=== PATIENT | female | born 1965 | race Caucasian/White ===

== ENCOUNTER 2017-07-09 07:15 | Day surgery (SDC) | payer OTHER, MEDICAID ==
[~2017-07-09 07:15] MED LIST: CEFAZOLIN 1 GM INJ; LACTATED RINGER'S 1,000 ML IV*; LIDOCAINE 2% (SDV) 5 ML INJ; PROPOFOL 200 MG INJ
[2017-07-09] MEDS ORDERED: hydrALAzine 20 MG INJ IV (09:00)
[2017-07-09] MEDS ORDERED: MIDAZOLAM 1 MG/ML 2 ML INJ IV (09:00)
[2017-07-09] MEDS ORDERED: OXYCODONE/ACETAMINOPHEN (5/325) TAB PO ×2 (09:00)
[2017-07-09] MEDS ORDERED: ALBUTEROL 0.083% (NEB) 2.5 MG/3 ML AMP HHN (09:00)
[2017-07-09] MEDS ORDERED: MIDAZOLAM 1 MG/ML 2 ML INJ (09:00)
[2017-07-09] MEDS ORDERED: DIPHENHYDRAMINE 50 MG INJ IV (09:00)
[2017-07-09] MEDS ORDERED: FENTAnyl 50 MCG/ML VIAL IV ×3 (09:00)
[2017-07-09] MEDS ORDERED: LABETALOL HCL 20MG INJ IV (09:00)
[2017-07-09] MEDS ORDERED: EPHEDrine SULFATE 50 MG/5 ML SYG IV (09:00)
[2017-07-09] MEDS ORDERED: HYDROmorphONE (0.2 MG/ML) 10ML SYG IV ×3 (09:00)
[2017-07-09] MEDS ORDERED: FENTAnyl 50 MCG/ML VIAL (09:04)
[2017-07-09] MEDS ORDERED: DEXAMETHASONE 4 MG/ML 1 ML INJ (09:54)
[2017-07-09] MEDS ORDERED: ONDANSETRON 4 MG INJ (09:55)
[2017-07-09] MEDS ORDERED: CEFAZOLIN 1 GM INJ (09:55)
[2017-07-09] MEDS ORDERED: KETOROLAC 30 MG INJ IM (10:24)
[2017-07-09] MEDS: ONDANSETRON 4 MG INJ IV (10:42)
[2017-07-09] MEDS: MEPERIDINE 25 MG INJ IV (10:42)
== END 2017-07-09 12:53 | disposition home or self-care (01) ==
LOC: SDS 07:15
DX: N85.00 Endometrial hyperplasia, unspecified (principal); N95.0 Postmenopausal bleeding; N81.10 Cystocele, unspecified; N85.2 Hypertrophy of uterus; N39.3 Stress incontinence (female) (male)
CPT/HCPCS: 58558; 88305

== ENCOUNTER 2018-01-12 06:10 | Inpatient (IN) | payer OTHER ==
[2018-01-12] MEDS: CEFAZOLIN 2 GM/50 ML (PMX) 50 ML IVPB (06:00)
[2018-01-12] MEDS ORDERED: LACTATED RINGER'S 1,000 ML IV (07:00)
[2018-01-12] MEDS ORDERED: BUPIVACAINE 0.75%/DEXT (SPINAL) 2 ML INJ (07:00)
[2018-01-12] MEDS ORDERED: LIDOCAINE 2% (SDV) 5 ML INJ (07:00)
[2018-01-12] MEDS ORDERED: MIDAZOLAM 1 MG/ML 2 ML INJ (07:37)
[2018-01-12] MEDS ORDERED: EPINEPHrine 1 MG INJ (07:41)
[2018-01-12] MEDS ORDERED: morphine SULFATE/PF (10 MG/10 ML) INJ (07:41)
[2018-01-12] MEDS: POLYMYXIN/BACITRACIN 1L IRRIG (08:24)
[2018-01-12] MEDS: LIDOCAINE 1%/EPI 30 ML INJ (08:24)
[2018-01-12] MEDS ORDERED: CEFAZOLIN 1 GM INJ (09:48)
[2018-01-12] MEDS ORDERED: DEXAMETHASONE 4 MG/ML 1 ML INJ (09:48)
[2018-01-12] MEDS ORDERED: ROCURONIUM 50 MG INJ (09:48)
[2018-01-12] MEDS ORDERED: ONDANSETRON 4 MG INJ ×2 (09:48→11:58)
[2018-01-12] MEDS ORDERED: PROPOFOL 100 ML (10:25)
[2018-01-12] MEDS ORDERED: GLYCOPYRROLATE 0.4 MG INJ (11:26)
[2018-01-12] MEDS ORDERED: NEOSTIGMINE 3 MG/3 ML SYRINGE (11:26)
[2018-01-12] MEDS ORDERED: NALOXONE (0.4 MG/ML) INJ IV (12:00)
[2018-01-12] MEDS ORDERED: EPHEDrine SULFATE 50 MG/5 ML SYG IV (12:00)
[2018-01-12] MEDS ORDERED: ONDANSETRON INJ 6 MG in DEXTROSE 5% 50 ML IVPB (12:00)
[2018-01-12] MEDS ORDERED: MEPERIDINE 25 MG INJ IV (12:00)
[2018-01-12] MEDS ORDERED: METOCLOPRAMIDE 10 MG INJ IV (12:00)
[2018-01-12] MEDS ORDERED: hydrALAzine 20 MG INJ IV (12:00)
[2018-01-12] MEDS ORDERED: ALBUTEROL 0.083% (NEB) 2.5 MG/3 ML AMP HHN (12:00)
[2018-01-12] MEDS ORDERED: OXYCODONE/ACETAMINOPHEN (5/325) TAB PO ×2 (12:00)
[2018-01-12] MEDS ORDERED: DIPHENHYDRAMINE 50 MG INJ IV (12:00)
[2018-01-12] MEDS ORDERED: HYDROmorphONE 0.5 MG/0.5 ML SYG IV ×2 (12:00)
[2018-01-12] MEDS ORDERED: ZOLPIDEM 5 MG TAB PO (12:00)
[2018-01-12] MEDS ORDERED: HYDROmorphONE 1 MG/5 ML IV SYRINGE IV ×2 (12:00)
[2018-01-12] MEDS ORDERED: LABETALOL HCL 20MG INJ IV (12:00)
[2018-01-12] MEDS ORDERED: KETOROLAC 30 MG INJ IV (12:00)
[2018-01-12] MEDS: ONDANSETRON 4 MG INJ IV (12:04)
[2018-01-12] MEDS: HYDROmorphONE 1 MG/5 ML IV SYRINGE IV (12:27)
[2018-01-12] MEDS: METOCLOPRAMIDE 10 MG INJ IV ×3 (13:28→23:35)
[2018-01-12] MEDS: PIPER-TAZO 3.375 GM IV (PMX) 100 ML IVPB ×3 (13:33→23:35)
[2018-01-12] MEDS: metroNIDAZOLE 500 MG/NS (PMX) 100 ML IVPB ×3 (14:46→23:35)
[2018-01-12] MEDS: LACTATED RINGER'S 1,000 ML IV ×2 (14:48→19:41)
[2018-01-12] MEDS: DIPHENHYDRAMINE 50 MG INJ IV (16:40)
[2018-01-12] MEDS: HYDROmorphONE 1 MG/ML SYG IV (20:55)
[2018-01-12] MEDS: KETOROLAC 30 MG INJ IV (23:36)
[2018-01-13] MEDS: HYDROmorphONE 1 MG/ML SYG IV (01:30)
[2018-01-13] MEDS: LACTATED RINGER'S 1,000 ML IV ×5 (03:41→21:56)
[2018-01-13] MEDS: KETOROLAC 30 MG INJ IV ×4 (05:43→20:00)
[2018-01-13] MEDS: PIPER-TAZO 3.375 GM IV (PMX) 100 ML IVPB ×4 (05:43→23:27)
[2018-01-13] MEDS: METOCLOPRAMIDE 10 MG INJ IV (05:43)
[2018-01-13] MEDS: metroNIDAZOLE 500 MG/NS (PMX) 100 ML IVPB ×4 (05:43→23:27)
[2018-01-13] MEDS: ONDANSETRON 4 MG INJ IV ×2 (07:02→13:53)
[2018-01-13] MEDS: DIPHENHYDRAMINE 50 MG INJ IV (07:02)
[2018-01-13 08:50] LABS: ADD MAN DIFF? NO
[2018-01-13 08:58] LABS: WHITE BLOOD COUNT 11.5 10^3/ul (4.8-10.8)
[2018-01-13 08:58] LABS: BASOPHILS % 0.2 % (0.0-2.0); HEMATOCRIT 33.8 % (37.0-47.0); HEMOGLOBIN 11.3 g/dl (12.0-16.0); LYMPHOCYTES % 17.5 % (15.0-51.0); MEAN CORPUSCULAR HEMOGLOBIN 29.9 pg (29.0-33.0); MEAN CORPUSCULAR HGB CONC 33.4 g/dl (32.0-37.0); MEAN CORPUSCULAR VOLUME 89.4 fl (82.0-101.0); MEAN PLATELET VOLUME 9.9 fl (7.4-10.4); MONOCYTE # 0.8 10^3/ul (0.3-0.9); MONOCYTES % 7.2 % (0.0-11.0); NEUTROPHIL # 8.6 10^3/ul (1.6-7.5); NEUTROPHILS % 74.7 % (39.0-77.0); PLATELET COUNT 256 10^3/UL (140-415); RED BLOOD COUNT 3.78 10^6/ul (4.20-5.40); RED CELL DISTRIBUTION WIDTH 12.3 % (11.5-14.5)
[2018-01-13 09:27] LABS: ANION GAP 10 (8-16); BLOOD UREA NITROGEN 10 mg/dl (7-20); CALCIUM 8.8 mg/dl (8.4-10.2); CARBON DIOXIDE 28 mmol/L (21-31); CHLORIDE 106 mmol/L (97-110); CREATININE 0.59 mg/dl (0.44-1.00); GLUCOSE 94 mg/dl (70-220); POTASSIUM 3.2 mmol/L (3.5-5.1); SODIUM 141 mmol/L (135-144)
[2018-01-13] MEDS ORDERED: ALPRAZOLAM 0.25 MG TAB PO (11:30)
[2018-01-13] MEDS: HYDROmorphONE 0.5 MG/0.5 ML SYG IV (13:54)
[2018-01-13] MEDS: POTASSIUM CHLORIDE (SR) 20 MEQ TAB PO ×2 (13:54→20:36)
[2018-01-13] MEDS ORDERED: ESTRADIOL VALERATE 20 MG/0.5 ML INJ IM (14:00)
[2018-01-13] MEDS: ALPRAZOLAM 0.25 MG TAB PO ×2 (16:22→20:36)
[2018-01-13] MEDS: ESTRADIOL VALERATE 20 MG/0.5 ML INJ IM (16:27)
[2018-01-13] MEDS: POTASSIUM CHLORIDE 20 MEQ POWDER FOR ORAL SOLN PO (21:18)
[2018-01-14] MEDS: KETOROLAC 30 MG INJ IV ×6 (02:00→20:00)
[2018-01-14] MEDS: LACTATED RINGER'S 1,000 ML IV ×3 (03:41→18:39)
[2018-01-14] MEDS: ONDANSETRON 4 MG INJ IV ×2 (05:27→18:40)
[2018-01-14] MEDS: metroNIDAZOLE 500 MG/NS (PMX) 100 ML IVPB ×3 (05:27→18:38)
[2018-01-14] MEDS: PIPER-TAZO 3.375 GM IV (PMX) 100 ML IVPB ×3 (05:27→18:39)
[2018-01-14 06:02] LABS: ADD MAN DIFF? NO
[2018-01-14 06:07] LABS: BASOPHILS % 0.4 % (0.0-2.0); EOSINOPHILS # 0.2 10^3/ul (0.0-0.5); EOSINOPHILS % 1.8 % (0.0-7.0); HEMATOCRIT 32.9 % (37.0-47.0); HEMOGLOBIN 10.7 g/dl (12.0-16.0); LYMPHOCYTES # 2.9 10^3/ul (0.8-2.9); LYMPHOCYTES % 32.1 % (15.0-51.0); MEAN CORPUSCULAR HEMOGLOBIN 29.8 pg (29.0-33.0); MEAN CORPUSCULAR HGB CONC 32.5 g/dl (32.0-37.0); MEAN CORPUSCULAR VOLUME 91.6 fl (82.0-101.0); MEAN PLATELET VOLUME 9.5 fl (7.4-10.4); MONOCYTE # 0.6 10^3/ul (0.3-0.9); NEUTROPHIL # 5.3 10^3/ul (1.6-7.5); NEUTROPHILS % 58.4 % (39.0-77.0); PLATELET COUNT 236 10^3/UL (140-415); RED BLOOD COUNT 3.59 10^6/ul (4.20-5.40); RED CELL DISTRIBUTION WIDTH 12.5 % (11.5-14.5)
[2018-01-14 06:29] LABS: ANION GAP 11 (8-16); CARBON DIOXIDE 26 mmol/L (21-31); CHLORIDE 107 mmol/L (97-110); POTASSIUM 3.7 mmol/L (3.5-5.1); SODIUM 140 mmol/L (135-144)
[2018-01-14] MEDS: POTASSIUM CHLORIDE 20 MEQ POWDER FOR ORAL SOLN PO (10:16)
[2018-01-14] MEDS: ALPRAZOLAM 0.25 MG TAB PO ×2 (12:40→21:00)
[2018-01-14] MEDS: PANTOPRAZOLE 40 MG INJ IV (12:43)
[2018-01-15] MEDS: PIPER-TAZO 3.375 GM IV (PMX) 100 ML IVPB ×4 (00:14→18:30)
[2018-01-15] MEDS: metroNIDAZOLE 500 MG/NS (PMX) 100 ML IVPB ×5 (00:14→23:23)
[2018-01-15] MEDS: KETOROLAC 30 MG INJ IV (01:16)
[2018-01-15] MEDS: LACTATED RINGER'S 1,000 ML IV (03:41)
[2018-01-15] MEDS: PANTOPRAZOLE 40 MG INJ IV (05:45)
[2018-01-15 06:04] LABS: ADD MAN DIFF? NO
[2018-01-15 06:11] LABS: WHITE BLOOD COUNT 7.5 10^3/ul (4.8-10.8)
[2018-01-15 06:11] LABS: BASOPHILS % 0.5 % (0.0-2.0); EOSINOPHILS # 0.3 10^3/ul (0.0-0.5); EOSINOPHILS % 3.7 % (0.0-7.0); HEMATOCRIT 30.9 % (37.0-47.0); HEMOGLOBIN 10.1 g/dl (12.0-16.0); LYMPHOCYTES # 1.8 10^3/ul (0.8-2.9); LYMPHOCYTES % 23.8 % (15.0-51.0); MEAN CORPUSCULAR HEMOGLOBIN 29.3 pg (29.0-33.0); MEAN CORPUSCULAR HGB CONC 32.7 g/dl (32.0-37.0); MEAN CORPUSCULAR VOLUME 89.6 fl (82.0-101.0); MEAN PLATELET VOLUME 9.5 fl (7.4-10.4); MONOCYTE # 0.6 10^3/ul (0.3-0.9); MONOCYTES % 7.9 % (0.0-11.0); NEUTROPHIL # 4.8 10^3/ul (1.6-7.5); NEUTROPHILS % 63.8 % (39.0-77.0); PLATELET COUNT 219 10^3/UL (140-415); RED BLOOD COUNT 3.45 10^6/ul (4.20-5.40); RED CELL DISTRIBUTION WIDTH 12.1 % (11.5-14.5)
[2018-01-15 06:31] LABS: ANION GAP 9 (8-16); BLOOD UREA NITROGEN 8 mg/dl (7-20); CALCIUM 8.4 mg/dl (8.4-10.2); CARBON DIOXIDE 29 mmol/L (21-31); CHLORIDE 106 mmol/L (97-110); CREATININE 0.58 mg/dl (0.44-1.00); GLUCOSE 86 mg/dl (70-220); POTASSIUM 3.8 mmol/L (3.5-5.1); SODIUM 140 mmol/L (135-144)
[2018-01-15] MEDS: ALPRAZOLAM 0.25 MG TAB PO ×3 (09:00→19:58)
[2018-01-15] MEDS ORDERED: KETOROLAC 30 MG INJ IV (10:00)
[2018-01-15] MEDS: ZOLPIDEM 5 MG TAB PO (20:02)
[2018-01-16] MEDS: PIPER-TAZO 3.375 GM IV (PMX) 100 ML IVPB ×3 (00:50→12:01)
[2018-01-16] MEDS: PANTOPRAZOLE 40 MG INJ IV (05:27)
[2018-01-16] MEDS: metroNIDAZOLE 500 MG/NS (PMX) 100 ML IVPB ×2 (05:27→12:01)
[2018-01-16 05:55] LABS: ADD MAN DIFF? NO
[2018-01-16 06:01] LABS: WHITE BLOOD COUNT 6.9 10^3/ul (4.8-10.8)
[2018-01-16 06:01] LABS: BASOPHILS % 0.6 % (0.0-2.0); EOSINOPHILS # 0.4 10^3/ul (0.0-0.5); EOSINOPHILS % 5.4 % (0.0-7.0); HEMATOCRIT 30.3 % (37.0-47.0); HEMOGLOBIN 10.2 g/dl (12.0-16.0); LYMPHOCYTES # 1.8 10^3/ul (0.8-2.9); LYMPHOCYTES % 26.7 % (15.0-51.0); MEAN CORPUSCULAR HEMOGLOBIN 30.2 pg (29.0-33.0); MEAN CORPUSCULAR HGB CONC 33.7 g/dl (32.0-37.0); MEAN CORPUSCULAR VOLUME 89.6 fl (82.0-101.0); MEAN PLATELET VOLUME 9.6 fl (7.4-10.4); MONOCYTE # 0.6 10^3/ul (0.3-0.9); MONOCYTES % 8.8 % (0.0-11.0); NEUTROPHILS % 58.4 % (39.0-77.0); PLATELET COUNT 223 10^3/UL (140-415); RED BLOOD COUNT 3.38 10^6/ul (4.20-5.40); RED CELL DISTRIBUTION WIDTH 12.2 % (11.5-14.5)
[2018-01-16] MEDS: ONDANSETRON 4 MG INJ IV ×2 (06:44→12:01)
[2018-01-16] MEDS: ALPRAZOLAM 0.25 MG TAB PO ×2 (08:47→13:27)
== END 2018-01-16 14:10 | disposition home or self-care (01) | DRG 743 ==
LOC: REC 06:10 → 2NE 13:23
PROC: 0UT9FZZ Resection of Uterus, Via Natural or Artificial Opening With Percutaneous Endoscopic Assistance (ICD-10-PCS; principal; 2018-01-12 07:30)
PROC: 0UB74ZZ Excision of Bilateral Fallopian Tubes, Percutaneous Endoscopic Approach (ICD-10-PCS; 2018-01-12 07:30)
DX: N73.1 Chronic parametritis and pelvic cellulitis (principal); D25.9 Leiomyoma of uterus, unspecified; N81.3 Complete uterovaginal prolapse; N39.46 Mixed incontinence; N80.0 Endometriosis of uterus; K59.00 Constipation, unspecified
CPT/HCPCS: 80048; 80051; 84703; 85025; 86850; 86900; 86901; 87086; 88305